=== PATIENT | female | born 1985 | race Caucasian/White ===

== ENCOUNTER 2017-12-30 21:47 | Emergency (ER) | payer MEDICAID ==
[~2017-12-30] VITALS: Ht 160 cm; Wt 85.0 kg
[2017-12-31] MEDS ORDERED: KETOROLAC 60MG/2ML VIAL IM ONE (02:00)
[2017-12-31 03:13] VITALS: BP 136/82
== END 2017-12-31 03:15 | disposition home or self-care (01) ==
LOC: ER 21:47
DX: M54.2 Cervicalgia (principal); R51 Headache; V49.88XA Car occupant (driver) (passenger) injured in other specified transport accidents, initial encounter; Y93.89 Activity, other specified; Y92.89 Other specified places as the place of occurrence of the external cause; Y99.8 Other external cause status
CPT/HCPCS: 81025; 99282; J1885